=== PATIENT | male | born 1990 | race Asian ===

== ENCOUNTER → 2017-11-01 | Outpatient (CLI) | payer OTHER | END | disposition home or self-care (01) | LOC: C.RDSM 09:01 | PROVIDERS: ATTEND Orthopaedic Surgery Sports Medicine | DX: M79.89 Other specified soft tissue disorders (principal) ==

== ENCOUNTER → 2017-11-21 | Outpatient (CLI) | payer OTHER ==
[~2017-11-21] MED LIST: GADAVIST IV PRN
--- NOTE | 2017-11-21 15:45 | DIAGNOSTIC IMAGING REPORT ---
MRI OF THE RIGHT ANKLE COMBO; MRI OF THE RIGHT FOREFOOT COMBO CLINICAL HISTORY: Right foot pain. Palpable mass. COMPARISON STUDY: Radiographs of the right foot dated 11/01/2017. TECHNIQUE: MRI of the right ankle and MRI of the right forefoot are performed utilizing various T1 and T2-weighted sequences in the axial, sagittal, and coronal planes. Contrast-enhanced sequences of the foot and ankle were acquired following the IV administration of 8 cc of Gadavist. FINDINGS: There is no MRI evidence of fracture or osteonecrosis. The ankle mortise is intact. No osteochondral defect is identified in the talar dome. There is no ankle joint effusion. There is marrow edema identified within the anterior process of the calcaneus, with a 9 mm degenerative cyst. 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 A tiny bone island is incidentally noted in the distal tibia. Normal marrow signal intensity is otherwise preserved throughout the visualized bony structures. Normal fat is maintained within the sinus tarsi. The anterior, posterior, and peroneal tendons appear intact. There is no enhancing mass lesion seen deep to the cutaneous marker which overlies the extensor digitorum brevis muscle. No enhancing mass is seen throughout the soft tissues of the foot or ankle. There is a nonenhancing 10 mm ganglion cyst identified at the base of the fifth metatarsal with mild surrounding enhancement. The plantar fascia is normal as visualized. The anterior talofibular ligament is intact. There has been age indeterminant tearing of the anterior tibiofibular ligament. The Achilles tendon is normal in morphology and signal intensity. The deltoid and spring ligaments are intact as imaged. The regional musculature is normal in bulk and signal intensity. IMPRESSION: 1. The cutaneous marker overlies a normal-appearing muscle, likely the extensor digitorum brevis. There is no mass or abnormal enhancement in this region. 2. There is marrow edema and degenerative cystic change identified in the anterior process of the calcaneus at the calcaneonavicular articulation. 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 3. A 10 mm ganglion cyst is noted at the base of the fifth metatarsal. Mild surrounding enhancement may represent inflammation. 4. There has been age indeterminant tearing of the anterior tibiofibular ligament. 5. The ankle tendons appear maintained. 6. Additional findings as above. Dictated: 11/21/2017 2:43 PM Transcribed: 11/21/2017 3:44 PM [email or web address] Electronically signed by: Narendra King M.D. 11/21/2017 3:51 PM Dictated Date/Time: 11/21/2017 2:43 PM
== END | disposition home or self-care (01) ==
LOC: C.MRIBC 12:26
PROVIDERS: ATTEND Family Medicine
DX: R22.41 Localized swelling, mass and lump, right lower limb (principal); M67.471 Ganglion, right ankle and foot